=== PATIENT | female | born 1995 | race Caucasian/White ===

== ENCOUNTER 2017-09-01 14:09 | Emergency (ER) | payer BC ==
[~2017-09-01] VITALS: Ht 149.9 cm; Wt 41.9 kg
[2017-09-01] MEDS ORDERED: BROMFED DM COU118 ML PO (15:59)
[2017-09-01] MEDS ORDERED: NASONEX17 GM (15:59)
[2017-09-01] MEDS ORDERED: IBUPROFEN400 MG PO (15:59)
[2017-09-01] MEDS: SODIUM CHLORIDE 0.9% 1000ML 1,000 ML ONE (16:03)
[2017-09-01] MEDS: IBUPROFEN 200 MG TAB PO ONE (16:04)
[2017-09-01] MEDS: ACETAMINOPHEN 325 MG TAB PO ONE (16:04)
[2017-09-01 16:12] VITALS: BP 118/68
== END 2017-09-01 17:27 | disposition home or self-care (01) ==
LOC: FSED 14:09
DX: B34.9 Viral infection, unspecified (principal); E86.0 Dehydration
CPT/HCPCS: 80053; 81003; 81025; 85025; 87400; 99283; J7030